=== PATIENT | female | born 1975 | race African-American/Black ===

== ENCOUNTER 2023-01-25 15:22 | Emergency (ER) | payer BC, SELFPAY ==
--- NOTE | 2023-01-25 15:36 | ED.URI ---
HPI - URI/Sore Throat General Chief Complaint: Upper Respiratory Infection Stated Complaint: Ear/Nose/ Throat Time Seen by Provider: 01/25/23 15:31 Source: patient Mode of arrival: ambulatory Limitations: no limitations History of Present Illness HPI Narrative: Betina is a 47-year-old female patient presenting to the clinic today with complaints of cough, nasal congestion, headache, sore throat, dizziness, and right ear pain that has been off and on for 3 weeks. States the last that of her symptoms began just yesterday. She denies any known fever but has had chills. She denies any chest pain or shortness of breath. She denies any known exposure to anyone with COVID, flu, or strep MD elicited complaint: cough, sore throat, nasal congestion and other (Headache, dizziness, right ear pain) Related Data Home Medications Medication Instructions Recorded Confirmed albuterol sulfate 90 mcg/actuation inhalation 01/25/23 aerosol inhaler allopurinol 100 mg tablet mg 01/25/23 ergocalciferol (vitamin D2) 1,250 01/25/23 mcg (50,000 unit) capsule fluticasone fur. 100 mcg-umeclid inhalation 01/25/23 62.5 mcg-vilant 25 mcg inhalat.powder (Trelegy Ellipta) indomethacin 25 mg capsule mg 01/25/23 loratadine 10 mg tablet mg 01/25/23 pantoprazole 40 mg tablet,delayed mg PO 01/25/23 release triamterene 37.5 tablet 01/25/23 mg-hydrochlorothiazide 25 mg tablet Allergies Allergy/AdvReac Type Severity Reaction Status Date / Time No Known Allergies Allergy Verified 01/25/23 15:46 Review of Systems Review of Systems: Pertinent positives per HPI. Patient denies any fever, rash, visual changes, dizziness, shortness of breath, chest pain, palpitations, nausea, vomiting, diarrhea, constipation, abdominal pain, or any urinary issues. PMFSH Comments At the time of my signature, I reviewed and agree with the nursing past medical, surgical, social, and family history. There is no relevant family history pertinent to the patient complaint. Exam Narrative: General: Well-developed, well nourished, in no apparent distress Head: Normocephalic, atraumatic Eyes: Pupils equally round and reactive to light bilaterally, EOM intact, sclera and conjunctive clear, no discharge, lids normal Ears: TMs intact, dull, congested, ear canals clear, no drainage, grossly hearing normal. Nose: Nares patent, clear nasal discharge, moderate inflammation, no sinus tenderness. Mouth: Oral pharynx without lesions or masses, good dentition, MMM. Postnasal drip Neck: Supple, trachea midline, no enlargement of anterior or posterior cervical nodes, no thyroid masses or goiter palpable. Cardio: Regular rate and rhythm, s1 and s2 normal, no murmur appreciated. Resp: Clear to auscultation bilaterally, no rhonchi, rales, wheezing or rubs Course Course Emergency Course: Portions of this record may have been created with voice recognition software. Level of Care: Express Care Visit Vital Signs Vital signs: Vital Signs Temperature 36.8 C 01/25/23 15:38 Pulse Rate 85 01/25/23 15:38 Respiratory Rate 12 01/25/23 15:38 Blood Pressure 129/80 01/25/23 15:38 Pulse Oximetry 98 01/25/23 15:38 Oxygen Delivery Room Air 01/25/23 15:38 Temperature 36.8 C 01/25/23 15:38 Pulse Rate 85 01/25/23 15:38 Respiratory Rate 12 01/25/23 15:38 Blood Pressure 129/80 01/25/23 15:38 Pulse Oximetry 98 01/25/23 15:38 Oxygen Delivery Room Air 01/25/23 15:38 Vital signs reviewed MDM - URI/Sore Throat MDM Narrative Medical decision making narrative: At the time of visit patient is resting comfortably on the exam table. COVID and strep test were obtained. COVID testing was positive in the clinic today. Strep testing was negative. Will send in prescription for antivirals and supportive measures were discussed with the patient she voiced understanding discharge instructions and agrees to treatment plan. Differential Diagnosi
[2023-01-25 15:38] VITALS: BP 129/80; PULSE 85; RESP 12; TEMP 36.8; O2SAT 98
== END 2023-01-25 16:03 | disposition home or self-care (01) ==
PROVIDERS: Emergency Provider Nurse Practitioner Family; PCP Internal Medicine
DX: U07.1 COVID-19 (principal)
CPT/HCPCS: 87081; 87426; 87880; 99203; C9803; G0463